=== PATIENT | male | born 1950 | race Two or more races ===

== ENCOUNTER 2018-12-13 06:00 | Day surgery (SDC) | payer OTHER ==
[~2018-12-13 06:00] MED LIST: LISINOPRIL20 MG PO; ZOCOR40 MG PO; [UNRECOGNIZED DRUG - OTHER] PO
== END 2018-12-13 10:26 | disposition home or self-care (01) ==
LOC: CIR.AMB 06:00
DX: D17.22 Benign lipomatous neoplasm of skin and subcutaneous tissue of left arm (principal); D36.17 Benign neoplasm of peripheral nerves and autonomic nervous system of trunk, unspecified